=== PATIENT | male | born 1945 | race Caucasian/White ===

== ENCOUNTER 2016-08-19 08:18 | Day surgery (SDC) | payer MEDICARE ==
[~2016-08-19] VITALS: Ht 180.3 cm; Wt 104.5 kg
[~2016-08-19 08:18] MED LIST: COREG DPS12.5 MG PO; DELTASONE DPS10 MG PO; DUONEB DPS3 ML IH; FLOMAX0.4 MG PO; GUAIFENESIN PO; LANTUS100 UNITS/ SQ; LASIX DPS80 MG PO; LASIX PO; LIPITOR DPS40 MG PO; MICRO-K DPS10 MEQ PO; PHOSLO667 MG PO; PROTONIX40 MG PO; PROVENTIL2.5 MG/0.5 IH; SPIRIVA IH; TUMS PO; VITAMIN D2000 UNIT PO
== END 2016-08-19 12:50 | disposition home or self-care (01) ==
LOC: RAD.S 08:18
PROC: B51WYZZ Fluoroscopy of Dialysis Shunt/Fistula using Other Contrast (ICD-10-PCS; principal; 2016-08-19)
DX: T82.858A Stenosis of other vascular prosthetic devices, implants and grafts, initial encounter (principal); N18.6 End stage renal disease; Z88.0 Allergy status to penicillin; Z79.899 Other long term (current) drug therapy

== ENCOUNTER 2016-09-16 10:57 | Emergency (ER) | payer MEDICARE ==
--- NOTE | 2016-09-19 16:02 | ER ---
ADMIT: 09/16/2016 RM/LOC: ER [facility] MR#: [id number] [id number] [place] [address] Emergency Room Report SEX: M AGE: 71 : 1945 DATE: 09/16/2016 ADDENDUM: A 71-year-old male comes in for evaluation of a wound. He sustained to his left elbow just prior to arrival. States he was leaving the bank when he caught his left elbow on the door handle and sustained a wound that he had some trouble getting the bleeding to stop. He denies being on a blood thinners, but has end-stage renal disease, on dialysis and [facility]. His physical exam shows he has a skin tear on the lateral aspect of his left forearm, but no true laceration. Neurovascularly, he is intact with no bony tenderness and full range of motion of the elbow. The wound was cleaned and approximated as best we could with Steri-Strips, and he is discharged home to keep the wound clean and dry, and follow up with [facility] as needed. Chester Crain MD/ erick JOB #: [id number] CC: Chester Crain MD, Attending Physician UNKNOWN, Family Physician
== END 2016-09-16 11:45 | disposition home or self-care (01) ==
LOC: ER 10:57
DX: S51.012A Laceration without foreign body of left elbow, initial encounter (principal); I12.0 Hypertensive chronic kidney disease with stage 5 chronic kidney disease or end stage renal disease; N18.6 End stage renal disease; E11.9 Type 2 diabetes mellitus without complications; J44.9 Chronic obstructive pulmonary disease, unspecified; E78.5 Hyperlipidemia, unspecified; Z99.2 Dependence on renal dialysis; Z95.0 Presence of cardiac pacemaker; Z90.89 Acquired absence of other organs; Z88.0 Allergy status to penicillin; Z88.8 Allergy status to other drugs, medicaments and biological substances; Z88.5 Allergy status to narcotic agent; Z91.010 Allergy to peanuts; Z79.4 Long term (current) use of insulin; Z79.899 Other long term (current) drug therapy; W23.0XXA Caught, crushed, jammed, or pinched between moving objects, initial encounter; Y92.510 Bank as the place of occurrence of the external cause